=== PATIENT | female | born 1985 | race Two or more races ===

== ENCOUNTER 2017-01-10 12:35 | Inpatient (IN) | payer OTHER ==
[2017-01-10] MEDS ORDERED: LR 1,000 ML IV PRN (13:55)
[2017-01-10] MEDS ORDERED: EPSOM SALT 454 GM TP PRN (13:55)
[2017-01-10] MEDS ORDERED: OLIVE OIL 118 ML BTL MISC PRN (13:55)
[2017-01-10] MEDS ORDERED: LIDOCAINE 1% 300 MG/30 ML SDV SC PRN (13:55)
[2017-01-10] MEDS ORDERED: OXYTOCIN/RINGERS LACTATE 1,000 ML IV PRN (13:55)
[2017-01-10] MEDS ORDERED: TERBUTALINE SULFATE 1 MG/ML VIAL IV PRN (13:55)
[2017-01-10 14:09] LABS: % IMMATURE GRANULYOCYTES 1.7 % (0.0-1.1); ABSOLUTE IMMATURE GRANULOCYTES 0.21 10^3/uL (0.00-0.10); ADD DIFF? NO; ADD MORPH? NO; ADD SCAN? NO; ATYPICAL LYMPHOCYTE FLAG 0 (0-99); FRAGMENT RBC FLAG 0 (0-99); HEMATOCRIT 41.6 % (38.0-47.0); HEMOGLOBIN 13.9 g/dL (12.6-16.3); LEFT SHIFT FLG 10 (0-99); LIPEMIA HEMOLYSIS FLAG 80 (0-99); MEAN CELL HEMOGLOBIN 28.3 pg (27.9-34.1); MEAN CELL HEMOGLOBIN CONCENTR. 33.4 g/dL (32.4-36.7); MEAN CELL VOLUME 84.7 fL (81.5-99.8); MEAN PLATELET VOLUME 11.5 fL (8.7-11.7); PLATELET CLUMPS FLAG 0 (0-99); PLATELET COUNT 196 10^3/uL (150-400); RED BLOOD CELL COUNT 4.91 10^6/uL (4.18-5.33); RED CELL DISTRIBUTION WIDTH 13.7 % (11.5-15.2)
--- NOTE | 2017-01-10 14:58 | GHP ---
[f rep st] HISTORY AND PHYSICAL DATE OF ADMISSION: 01/10/2017 ADMITTING DIAGNOSES: 1. Intrauterine at 39 weeks and 4 days. 2. Early labor. HISTORY OF PRESENT ILLNESS: The patient is a 32-year-old, 2, para 0-0-1 -0, at 39 and 4/7 weeks with last menstrual period on 04/06/2016, with an estimated due date 01/12/2017, that is consistent with first trimester ultrasound at 7 weeks. The patient presents with complaints of leakage of fluid this morning. Fluid noted to be clear, no odor. She is having contractions every 5 minutes, and they are painful. Good movement noted. Denies any spotting or vaginal bleeding. The patient has her barn worker, Alma Jackson, who confirms that the patient had ruptured membranes this morning. The patient has good care at [facility], and presented in her 1st trimester. course is unremarkable. The patient did get genetic testing done and this was negative. The patient did develop anemia in , and was started on iron. She did get Tdap during the . GBS culture is negative. PAST OBSTETRIC HISTORY: In December of 2014, she had a spontaneous AB at 12 weeks, did not require D and C. 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 Cycles are every 33-35 days for 4 days. Last menstrual period of 04/06/2016. Positive test tested 05/19/2016. The patient denies a history of abnormal Pap smears or any exposure to sexually transmitted diseases. The patient does have a negative Pap smear during this . PAST MEDICAL HISTORY: Migraines and kidney stones. PAST SURGICAL HISTORY: Unremarkable. MEDICATIONS: Include hebg-fik-fqctmlm vitamin with DHA. ALLERGIES: No drug allergies. SOCIAL HISTORY: The patient is . 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 She lives with her . Denies alcohol, tobacco, or illicit drug use. FAMILY HISTORY: Noncontributory. LABORATORY DATA: The patient is O positive, antibody negative. RPR nonreactive. Rubella immune. Hepatitis B surface antigen negative. HIV negative. Trio screen was negative in 07/2016. Urine culture negative. Pap was normal. Negative HPV. AFP is negative. Verifi is negative. H and H 12 and 37.2. One-hour Glucola 122. GBS is negative. REVIEW OF SYSTEMS: 10-point ROS negative, positive pertinent noted in HPI. PHYSICAL EXAMINATION: VITAL SIGNS: On admission, vital signs are stable; Afebrile. GENERAL: The patient is well-nourished, well-developed female, alert and oriented x3. No apparent distress. CARDIOVASCULAR: Regular rate and rhythm without murmur. LUNGS: Clear to auscultation bilaterally. Normal breath sounds. ABDOMEN: Gravid, nondistended, nontender. EXTREMITIES: Normal to inspection without edema or calf tenderness. PELVIC: On exam, the patient is found to be 2 cm dilated, 100% effaced, and -2 station. Bulging membranes. The patient is found to be not grossly ruptured on exam. Negative nitrazine. heart tones are Category 2 tracing, with baseline of 140 bpm positive excels. There are some intermittent variable decels with a sergey to 110 beats per minute. Moderate variability. On toco, she is cruz every 5-7 minutes. ASSESSMENT: The patient is a 32-year-old, 2, para 0-0-1-0, at 39 and 4/ 7 weeks who presents in early labor, not grossly ruptured. PLAN: 1. Admit to Labor and Delivery for expectant management. 2. Group B streptococcus is negative. No prophylactic antibiotics needed. 3. Patient desires very little intervention at this time. 4. Patient up to ambulate. /[id number]/MODL MTDD
--- NOTE | 2017-01-10 22:48 | OBPROG ---
OBG Labor Progress Note Assessment/Plan: Assessment: 32 y/o @ 39 4/7 wks in labor Plan: Continue expectant management AROM - small, light meconium stained fluid FHTs - Cat II tracing with intermittent decels x 20 sec with sergey to 100 bpm Cont to closely monitor strip 01/10/17 22:45 Subjective: Pt is breathing through her ctx's Objective: 01/10/17 13:30 Patient ABO/Rh O POSITIVE 01/10/17 13:30 - SVE Dilation (cm): 7 Effacement (%): 100 Station: 0 De Jesus Current Contraction Pattern: Regular FHR (bpm): 140 FHR Pattern Variability: Moderate FHR Category: 1 Membranes: AROM Amniotic Fluid Color: Meconium Stained (light) - Procedures Non-surgical Procedures: Amniotomy Oxytocin Orders Assessment - Pre-Induction/Augmentation Assessment Gestational Age: 39 week(s) and 5 day(s) ICD10 Worksheet Patient Problems: Problems Problem Status Onset Active labor at term Acute
[2017-01-10] MEDS ORDERED: LIDOCAINE 1% 300 MG/30 ML SDV ONE (23:36)
[2017-01-10] MEDS ORDERED: AMMONIA AROMATIC 1 EACH AMP IH ONE (23:36)
[2017-01-10] MEDS ORDERED: OLIVE OIL 118 ML BTL ONE (23:36)
[2017-01-10] MEDS ORDERED: TERBUTALINE SULFATE 1 MG/ML VIAL ONE (23:37)
[2017-01-10] MEDS ORDERED: OXYTOCIN 10 UNIT/ML VIAL ONE (23:37)
[2017-01-10] MEDS ORDERED: MISOPROSTOL 200 MCG TAB ONE (23:37)
--- NOTE | 2017-01-11 00:53 | OBPROG ---
OBG Labor Progress Note Assessment/Plan: Assessment: 32 y/o @ 39 6/7 wks in labor Plan: Continue expectant management FHTs - Cat II tracing with intermittent decels x 10 sec with sergey to 100 bpm Cont to closely monitor strip Offered Nitrous and pt declines 01/11/17 00:51 Subjective: Pt is in the tub and breathing through her ctx's Objective: 01/10/17 13:30 Patient ABO/Rh O POSITIVE 01/10/17 13:30 - SVE Dilation (cm): 8 Effacement (%): 100 Station: +1 De Jesus Current Contraction Pattern: Regular FHR (bpm): 140 FHR Pattern Variability: Moderate FHR Category: 2 Membranes: AROM Amniotic Fluid Color: Meconium Stained (light) - Procedures Non-surgical Procedures: Amniotomy Oxytocin Orders Assessment - Pre-Induction/Augmentation Assessment Gestational Age: 39 week(s) and 5 day(s) ICD10 Worksheet Patient Problems: Problems Problem Status Onset Active labor at term Acute
[2017-01-11] MEDS ORDERED: fentaNYL 2MCG/ML/BUP 0.1% RTU 100 ML EP SCH (03:00)
[2017-01-11] MEDS ORDERED: LR 500 ML IV SCH (03:00)
[2017-01-11] MEDS ORDERED: LIDO/EPI 2% **for epidural** 20 ML SDV ONE ×2 (03:01→10:30)
[2017-01-11] MEDS ORDERED: fentaNYL 2MCG/ML/BUP 0.1% RTU 100 ML BAG EP ONE (03:01)
[2017-01-11] MEDS ORDERED: PHENYLEPHRINE HCL 100 MCG/ML SYR ONE ×5 (03:36→11:52)
--- NOTE | 2017-01-11 03:39 | PDANEPAE ---
ANE History of Present Illness Patient requests labor epidural for labor analgesia. ANE Review of Systems Review of systems is: negative - Exercise capacity Exercise capacity: <4 METS ANE Patient History - Allergies Allergies/Adverse Reactions: No Known Allergies Allergy (Unverified 01/10/17 13:54) ANE Labs/Vital Signs - Labs Result Diagrams: 01/10/17 13:30 - Vital Signs Height: 156 cm Weight: 59.874 kg ANE Physical Exam - Airway Mallampati Score: Class 1 Mouth exam: normal dental/mouth exam - Pulmonary Pulmonary: no respiratory distress - Cardiovascular Cardiovascular: regular rate and rhythym - ASA Status ASA Status: I ANE Anesthesia Plan Anesthesia Plan: epidural (RBA discussed, patient agrees to proceed. )
[2017-01-11] MEDS ORDERED: LR 500 ML IV PRN (05:10)
[2017-01-11] MEDS ORDERED: ONDANSETRON 4 MG/2 ML VIAL IVP PRN (05:10)
--- NOTE | 2017-01-11 05:17 | OBPROG ---
OBG Labor Progress Note Assessment/Plan: Assessment: 32 y/o @ 39 6/7 wks in labor Plan: s/p epidural, pt is comfortable Exam done and tolerated by pt, no cervical change noted in 4 hours IUPC placed, suspect inadequate labor Will start Pitocin per protocol FHTs - Cat I tracing Will recheck in 2 hours; if adequate labor noted and still no cervical change, discussed proceeding with a secondary to arrest of dilation 01/11/17 05:13 Subjective: Pt is finally comfortable and sleeping, s/p epidural Objective: 01/10/17 13:30 Patient ABO/Rh O POSITIVE 01/10/17 13:30 - SVE Dilation (cm): 6 (6-7 cm; exam was tolerated by pt since epidural and most accurate) Effacement (%): 100 Station: +1 - Procedures Non-surgical Procedures: Amniotomy Oxytocin Orders Assessment - Pre-Induction/Augmentation Assessment Gestational Age: 39 week(s) and 5 day(s) ICD10 Worksheet Patient Problems: Problems Problem Status Onset Active labor at term Acute
[2017-01-11] MEDS ORDERED: OXYTOCIN/RINGERS LACTATE 500 ML IV SCH (05:30)
--- NOTE | 2017-01-11 08:09 | OBPROG ---
OBG Labor Progress Note Assessment/Plan: Assessment: 32 y/o @ 39 5/7 weeks in active labor Plan: Pt has had a prolonged labor course and no cervical change in 6+ hours. She has an IUPC and her labor contractions have been far from adequate due to concerns about intolerance to the contractions. Overall status is reassuring and we will continue to increase the pitocin to attempt to achieve adequate labor. If baby does not tolerate this, or we are not able to achieve good labor to induce cervical change, we will need to proceed with c section. Patient is aware of this and we discussed the possibility. 01/11/17 08:06 Subjective: I came to assess patient this am upon taking over her care. She is resting and comfortable with her epidural. Objective: 01/10/17 13:30 Patient ABO/Rh O POSITIVE 01/10/17 13:30 - SVE Dilation (cm): 6 Effacement (%): 80 Station: -1 De Jesus Current Contraction Pattern: Regular (2-3) FHR (bpm): 140 FHR Pattern Variability: Moderate FHR Category: 2 (pt has had variable decels and occasional late decels that resolve with postition change) Membranes: AROM Amniotic Fluid Color: Meconium Stained (light) - Procedures Non-surgical Procedures: Amniotomy, IUPC Oxytocin Orders Assessment - Pre-Induction/Augmentation Assessment Gestational Age: 39 week(s) and 5 day(s) ICD10 Worksheet Patient Problems: Problems Problem Status Onset Active labor at term Acute
[2017-01-11] MEDS ORDERED: CALCIUM CARBONATE 500 MG CHEWABLE TAB PO PRN (08:46)
[2017-01-11] MEDS ORDERED: LR 500 ML IV ONE (10:20)
[2017-01-11] MEDS ORDERED: ceFAZolin 2 GM/DEXTROSE 100 ML IV ONE (10:20)
[2017-01-11] MEDS ORDERED: CEFAZOLIN 2 GM/DEXTROSE/100 ML BAG IV ONE (10:30)
[2017-01-11] MEDS ORDERED: LR 1,000 ML IV SCH (10:30)
[2017-01-11] MEDS ORDERED: fentaNYL 100 MCG/2 ML INJ ONE (10:30)
[2017-01-11] MEDS ORDERED: morphINE PF 5 MG/10 ML INJ ONE (11:01)
[2017-01-11] MEDS ORDERED: DEXAMETHASONE 4 MG/ML VIAL ONE ×2 (11:02→11:52)
[2017-01-11] MEDS ORDERED: OXYTOCIN 100 UNITS/10 ML VIAL ONE (11:02)
[2017-01-11] MEDS ORDERED: MEPERIDINE 25 MG/ML SYR ONE (11:04)
[2017-01-11] MEDS ORDERED: METHYLERGONOVINE MAL 0.2 MG/ML INJ ONE (11:11)
[2017-01-11] MEDS ORDERED: ALBUMIN 5% 500 ML BOTTLE IV ONE (11:33)
[2017-01-11] MEDS ORDERED: ONDANSETRON 4 MG/2 ML VIAL ONE (11:52)
[2017-01-11] MEDS ORDERED: SIMETHICONE 80 MG TAB CHEW PO PRN (11:57)
[2017-01-11] MEDS ORDERED: ACETAMINOPHEN 325 MG TAB PO PRN (11:57)
[2017-01-11] MEDS ORDERED: PROMETHAZINE HCL 25 MG/ML INJ IVP PRN (11:57)
[2017-01-11] MEDS ORDERED: DOCUSATE SODIUM 100 MG CAP PO PRN (11:57)
[2017-01-11] MEDS ORDERED: LACTULOSE 20 GM/30 ML UDCUP PO PRN (11:58)
[2017-01-11] MEDS ORDERED: POLYETHYLENE GLYCOL 3350 17 GM PKT PO PRN (11:58)
[2017-01-11] MEDS ORDERED: MAGNESIUM HYDROXIDE 30 ML UDCUP PO PRN (11:58)
[2017-01-11] MEDS ORDERED: BISACODYL 10 MG SUPP PR PRN (11:58)
--- NOTE | 2017-01-11 12:04 | OBDEL ---
Info Type: Primary GBS+: No Indications for Delivery: Spontaneous Labor Vaginal Delivery - Labor and Delivery Onset of Contractions Date: 01/10/17 Onset of Contractions Time: 04:20 Non-surgical Procedures: Amniotomy, IUPC Operative Report - Delivery Pre-op Diagnoses: IUP @ 39 5/7 weeks, arrest of dilation Post-op Diagnoses: same Nulliparous Prior to Delivery: Yes Presentation at Delivery: Vertex Procedure: Unscheduled Surgeon: Maria De Jesus Ordaz Furniture Designer: Mae So Anesthesiologist: Avery Mane Vehicle Modification Technician/DRY MILL WORKER: [place] Prabhakar L&D Analgesia/Anesthesia Type: Epidural Complications: Nucal Cord (loose x 1, uterine atony at delivery treated with pitocin and methergine) Findings: uterus, tubes and ovaries IV Fluid (ml): 2,000 (500 cc Albumin) EBL: 1200 [place] Data De Jesus Delivery Date: 01/11/17 Delivery Time: 11:08 ANAHI: 01/12/17 Gestational Age: 39 week(s) and 6 day(s) Sex of Infant: Female Score (1 Min): 8 Score (5 Min): 9 ICD10 Worksheet Patient Problems: Problems Problem Status Onset Active labor at term Acute
[2017-01-11] MEDS ORDERED: NALOXONE HCL 0.4 MG/ML INJ IVP PRN (12:20)
[2017-01-11] MEDS ORDERED: PHENYLEPHRINE HCL 100 MCG/ML SYR IVP PRN (12:20)
[2017-01-11] MEDS ORDERED: SCOPOLAMINE HYDROBROMIDE 1.5 MG PATCH TD PRN (12:21)
--- NOTE | 2017-01-11 12:44 | POSTANESTH ---
Post Anesthetic Evaluation Cardiovascular Status: Normal, Stable Respiratory Status: Normal, Stable, Similar to Pre-op Cond. Level of Consciousness/Mental Status: Can Participate in Eval, Alert and Oriented (Epidural dosed for C Section, BP treated, comfortable for surgery, to PACU, no pain or nausea.) Pain Control: Adequate, Prn Tx Ordered Nausea/Vomiting Control: Adequate, Prn Tx Ordered Complications Possibly Related to Anesthesia: None Noted
[2017-01-11] MEDS ORDERED: KETOROLAC 30 MG/1 ML SDV ONE (13:44)
[2017-01-11] MEDS: KETOROLAC 30 MG/1 ML SDV IVP PRN ×2 (13:44→19:58)
[2017-01-11] MEDS: SENNOSIDES/DOCUSATE SODIUM TAB PO SCH (19:58)
--- NOTE | 2017-01-11 19:59 | OBPP ---
Progress Note Assessment/Plan: Assessment: 32 y/o POD#0 s/p LTCS secondary to arrest of dilation Plan: Pt is doing well post-op. Will gradually advance diet and change to po pain meds. Yao d/c in am and bandage with be removed. support. Routine POC. 01/11/17 08:06 01/11/17 19:57 Subjective: Pt is resting comfortably. She has tolerated small amounts of reg diet without n/v. Her pain is well controlled with IV Toradol. Baby is trying to latch and is doing well. Objective: 01/10/17 13:30 Patient ABO/Rh O POSITIVE 01/10/17 13:30 Temp Pulse Resp BP Pulse Ox 37.0 C 89 16 109/70 98 01/11/17 17:00 01/11/17 17:00 01/11/17 17:00 01/11/17 17:00 01/11/17 17:00 Uterine Position/Fundal Height: Umbilicus -2 Uterine Tone: Firm Physical Exam - Physical Exam General Appearance: WD/WN, alert, no apparent distress Neck: non-tender, full range of motion, supple Respiratory: chest non-tender, lungs clear, normal breath sounds Cardiac/Chest: regular rate, rhythm Abdomen: normal bowel sounds, dressing (c/d/i) Extremities: swelling (no), Carolin's sign (neg)
--- NOTE | 2017-01-11 20:52 | SOAPPROG ---
SOAP Progress Note Assessment/Plan: Assessment: Acupuncture consult ordered for patient in labor to help contractions equalize and cervix dilate. Patient experiencing back labor and L sided hip pain. Two acupuncture treatments performed. Treatment 1 (side-lying): R PARVEEN 1-2 x 3 jamari: low back pain, balance BL meridian L/R BL 23-32 with e-stim: improve blood flow to sacrum, "move the qi downwards" , increase contractions. R Ling Gu to L SP 6 with e-stim: descend the qi, increase contractions. R BL 67: Lory well, induce labor R ST 36 - R GB 34: dilate cervix, improve energy, move qi DU 26: relax sacrum Gadsden retained for forty-five minutes. Patient felt an increase in her contractions. During the treatment, contractions regulated to approximately six minutes apart. Treatment 2 (on the toilet): R SP 6 - R SP 10 with e-stim: move the blood, increase contractions. L ST 36 - L LR 3 with e-stim: move the blood, increase contractions. L GB 34 - L 41 with e-stim: dilate cervix, relax the waist meridian. Gadsden retained for twenty minutes. Plan: Patient will follow up post- for relaxation, milk production, and pain reduction. 01/11/17 20:37 Objective: Vital Signs Temp Pulse Resp BP Pulse Ox 37.3 C 90 18 104/66 96 01/11/17 20:00 01/11/17 20:00 01/11/17 20:00 01/11/17 20:00 01/11/17 20:00 Laboratory Results 01/10/17 13:30 01/10/17 01/11/17 01/12/17 05:59 05:59 05:59 Intake Total 6410 Output Total 3200 Balance 3210 ICD10 Worksheet Patient Problems: Problems Problem Status Onset Active labor at term Acute
[2017-01-12] MEDS: KETOROLAC 30 MG/1 ML SDV IVP PRN ×2 (02:30→09:00)
[2017-01-12] MEDS: SENNOSIDES/DOCUSATE SODIUM TAB PO SCH ×2 (09:01→20:42)
[2017-01-12] MEDS ORDERED: PATCH REMOVAL 1 EA PATCH TD ONE (12:22)
[2017-01-12] MEDS: IBUPROFEN 600 MG TAB PO PRN ×2 (14:29→20:41)
[2017-01-12] MEDS: HYDROCODONE/APAP 5/325 TAB PO PRN ×3 (15:52→21:58)
--- NOTE | 2017-01-12 16:21 | SOAPPROG ---
SOAP Progress Note Assessment/Plan: Assessment: Doing well. Plan: Continue routine post-op cares. 01/12/17 16:20 Subjective: Patient seen and examined on the floor. POD 1 s/p primary under epidural analgesia. Doing well. In good spirits. No LA toxicity concerns. No residual weakness, or numbness. Objective: Vital Signs Temp Pulse Resp BP Pulse Ox 36.3 C 99 16 89/59 L 98 01/12/17 12:00 01/12/17 12:30 01/12/17 12:30 01/12/17 12:30 01/12/17 09:00 Laboratory Results 01/12/17 02:35 01/11/17 01/12/17 01/13/17 05:59 05:59 05:59 Intake Total 6710 Output Total 4050 650 Balance 2010 -650 ICD10 Worksheet Patient Problems: Problems Problem Status Onset Active labor at term Acute
--- NOTE | 2017-01-12 17:26 | OBPP ---
Progress Note Assessment/Plan: Assessment: POD 1 s/p Primary C/S for arrest of labor intraop hemorrhage severe anemia Plan: Disc anemia and symptoms, pt doing better. Disc option of a transfusion but pt not very tachycardic, and if dizziness is manageable, she'd like to avoid a transfusion at this time. Encouraged fluids and rest and iron TID 01/12/17 17:12 Subjective: Pt doing better. Mild nausea this am but denilson reg diet at lunch. Hydrating well. Slightly dizzy with amb but getting less. Working on BF. Pain managed well. Objective: 01/12/17 02:35 Patient ABO/Rh O POSITIVE 01/10/17 13:30 Temp Pulse Resp BP Pulse Ox 36.3 C 99 16 89/59 L 98 01/12/17 12:00 01/12/17 12:30 01/12/17 12:30 01/12/17 12:30 01/12/17 09:00 Uterine Position/Fundal Height: At Umbilicus Uterine Tone: Firm Physical Exam - Physical Exam General Appearance: WD/WN Abdomen: soft, other (FF at umb, incision CDI, approp post op tenderness) Extremities: non-tender, pedal edema (minimal) Skin: warm/dry Neuro/Psych: normal mood/affect
[2017-01-12] MEDS: IRON POLYSAC/IRON HEME 28 MG TAB PO SCH (21:57)
[2017-01-13] MEDS: HYDROCODONE/APAP 5/325 TAB PO PRN ×3 (02:20→14:40)
[2017-01-13] MEDS: IBUPROFEN 600 MG TAB PO PRN ×4 (02:20→21:01)
--- NOTE | 2017-01-13 08:15 | OBPP ---
Progress Note Assessment/Plan: Assessment: 1) s/p 1LTCS secondary to arrest of dilation POD # 2 - pt is stable 2) Anemia - pt is asymptomatic Plan: Continue routine post-op care Encourage ambulation Continue iron TID Plan for d/c home in am 01/1401/13/17 08:12 Subjective: Pt seen and examined. Doing well, no complaints. Pain overall well controlled. Increased pain in and out of the bed. Pt is OOB, denilson regular diet, voiding without difficulty and passing flatus. No BM yet. Denies any f/c/n/v/CP or SOB. BF well so far. Objective: 01/12/17 02:35 Patient ABO/Rh O POSITIVE 01/10/17 13:30 Temp Pulse Resp BP Pulse Ox 36.7 C 99 16 112/73 92 01/12/17 19:34 01/13/17 06:15 01/13/17 06:15 01/13/17 06:15 01/13/17 06:15 Uterine Position/Fundal Height: Umbilicus -2 Uterine Tone: Firm Physical Exam - Physical Exam General Appearance: WD/WN, alert, no apparent distress Respiratory: lungs clear, normal breath sounds Cardiac/Chest: regular rate, rhythm Abdomen: normal bowel sounds, non-tender, soft, flatus (+), incision (C/D/I with steri strips) Extremities: non-tender, normal inspection Neuro/Psych: alert, normal mood/affect, oriented x 3
[2017-01-13] MEDS: IRON POLYSAC/IRON HEME 28 MG TAB PO SCH ×3 (09:06→22:08)
[2017-01-13] MEDS: SENNOSIDES/DOCUSATE SODIUM TAB PO SCH ×2 (09:06→21:00)
[2017-01-14] MEDS: IBUPROFEN 600 MG TAB PO PRN ×3 (02:58→15:47)
[2017-01-14] MEDS: IRON POLYSAC/IRON HEME 28 MG TAB PO SCH ×3 (09:23→21:25)
[2017-01-14] MEDS: SENNOSIDES/DOCUSATE SODIUM TAB PO SCH ×2 (09:24→20:24)
[2017-01-14] MEDS: HYDROCODONE/APAP 5/325 TAB PO PRN ×3 (10:28→20:47)
[2017-01-15] MEDS: IBUPROFEN 600 MG TAB PO PRN ×3 (00:26→13:36)
[2017-01-15] MEDS: HYDROCODONE/APAP 5/325 TAB PO PRN ×4 (00:26→13:36)
[2017-01-15 09:43] VITALS: BP 114/73; PULSE 114; RESP 18; TEMP 98; O2SAT 97
[2017-01-15] MEDS: IRON POLYSAC/IRON HEME 28 MG TAB PO SCH ×2 (09:45→13:36)
[2017-01-15] MEDS: SENNOSIDES/DOCUSATE SODIUM TAB PO SCH (09:46)
--- NOTE | 2017-01-15 11:12 | OBPP ---
Progress Note Assessment/Plan: Assessment: POD 4 s/p Primary C/S for arrest of labor intraop hemorrhage severe anemia Plan: pt ready for D/C home. Encouraged fluids and rest and iron TID 01/12/17 17:12 01/15/17 11:10 Subjective: Pt doing ok. Still has occas dizziness when up for long periods. Is working on BF. Bld has been light. urinating fine. Marge iron and pain pills. Pain is well managed. Objective: 01/12/17 02:35 Patient ABO/Rh O POSITIVE 01/10/17 13:30 Temp Pulse Resp BP Pulse Ox 36.6 C 114 H 18 114/73 97 01/15/17 09:42 01/15/17 09:42 01/15/17 09:42 01/15/17 09:42 01/15/17 09:42 Uterine Position/Fundal Height: Umbilicus -1 Uterine Tone: Firm Physical Exam - Physical Exam General Appearance: WD/WN Abdomen: non-tender (approp post op tenderness), soft, other (incision CDI) Extremities: non-tender, pedal edema (minimal) Skin: warm/dry Neuro/Psych: normal mood/affect
--- NOTE | 2017-01-15 11:19 | OBGCSDC ---
General Delivery Information - General Info : 2 Para: 1 Abortions: 1 Delivery Physician/CNM: Maria De Jesus Ordaz Collections Representative: Mae So Admission Date: 01/10/17 Labs: Patient ABO/Rh O POSITIVE 01/10/17 13:30 Hct 21.7 % (38.0-47.0) L D 01/12/17 02:35 Vaginal - Diagnosis Presentation at Delivery: Vertex - Operations/Procedures Non-surgical Procedures: Amniotomy, IUPC L&D Analgesia/Anesthesia Type: Epidural - Delivery Number of Prior Sections: 0 Indications for Current Section: Arrest of Dilation Type: Primary Non-surgical Procedures: Amniotomy, IUPC Surgical Procedures: Unscheduled, Low Transverse Intra-op Complications: Post Hemorrhage EBL: 1200 L&D Analgesia/Anesthesia Type: Epidural - Hospital Course Antepartum: uncomplicated Intrapartum: arrest of dilation, intraop hemorrhage with pit and methergine given : severe anemia with drop to 21 - pt off/on symptomatic but declined transfusion. HR in 90-100s. pain managed well. working on [employer] Data De Jesus Delivery Date: 01/11/17 Delivery Time: 11:08 ANAHI: 01/12/17 Gestational Age: 40 week(s) and 3 day(s) Sex of Infant: Female Weight (gm): 3306 kg Score (1 Min): 8 Score (5 Min): 9 Discharge Information - Discharge Information Discharge Medications: Iron (TID), Hydrocodone, Ibuprofen, Vitamins Condition: Good Instruction/Follow Up: See Instruction Sheet, Two Weeks, Six Weeks (and 4 wks) Discharge Physician/CNM: Alma Morse
== END 2017-01-15 15:00 | disposition home or self-care (01) | DRG 765 ==
LOC: FLD 12:35 → FOB 01-11 14:21
PROVIDERS: ADMIT Obstetrics & Gynecology; ATTEND Obstetrics & Gynecology
PROC: 10D00Z1 Extraction of Products of Conception, Low, Open Approach (ICD-10-PCS; principal; 2017-01-10)
PROC: 3E033VJ Introduction of Other Hormone into Peripheral Vein, Percutaneous Approach (ICD-10-PCS; principal; 2017-01-10)
PROC: 10907ZC Drainage of Amniotic Fluid, Therapeutic from Products of Conception, Via Natural or Artificial Opening (ICD-10-PCS; principal; 2017-01-10)
DX: O62.0 Primary inadequate contractions (principal); O76 Abnormality in fetal heart rate and rhythm complicating labor and delivery; O90.81 Anemia of the puerperium; O69.81X0 Labor and delivery complicated by cord around neck, without compression, not applicable or unspecified; O72.1 Other immediate postpartum hemorrhage; O77.0 Labor and delivery complicated by meconium in amniotic fluid; Z3A.39 39 weeks gestation of pregnancy; Z37.0 Single live birth
CPT/HCPCS: J0690; J1100; J1885; J2210; J2274; J2370; J2405; J2550; J2590; J3010; J3105; P9041